=== PATIENT | male | born 1955 | race Caucasian/White ===

== ENCOUNTER 2023-05-11 06:23 | Day surgery (SDC) | payer MEDICARE, OTHER, SELFPAY ==
[2023-05-11] VITALS (10 sets, daily range): BP systolic 110–162; BP diastolic 62–94; BMI 31.3
--- NOTE | 2023-05-11 10:39 | W.SUR.PREOP ---
Pre-Operative Surgical Note
-
I have examined this patient prior to the performance of the scheduled procedure.
The patient's condition is unchanged from the time of the current History and
Physical and the patient is able to undergo the scheduled procedure.
[2023-05-11] MEDS: NORMOSOL-R 1000 IV (10:43)
[2023-05-11] MEDS: TYLENOL 1000 MG PO (10:43)
--- NOTE | 2023-05-11 13:52 | W.IMMPOSTOP ---
Surgical Immed Post Op Note
-
Primary Surgeon: Jose De Jesus
Assisting Surgeon: Marivel WILSON
Pre-op Diagnosis: Ventral hernia
Right inguinal hernia
Post-op Diagnosis: Incarcerated Ventral Hernia 3.5cm
Right inguinal hernia - direct
Procedure Performed: RAL repair incarcerated VH with mesh (IPOM +, ventralightST 11.4cm round)
RAL partial omentectomy
RAL MERY RIH repair with mesh; 3d Max, ex large mid weight mesh
Anesthesia Type: GETA + 0.25% Marcaine
Specimen / Cultures: none
Estimated Blood Loss: 16mL
Complications: none immediate
Operative Findings: Ventral hernia containing large portion of chronically incarcerated omentum. Numerous openings in omentum where was thinned out at neck of ventral hernia from chronic incarceration. Partial omentectomy therefore completed to
alleviate any potential future risk of internal hernias. Central abdominal wall fat pad cleared around ventral hernia defect. IPOM + sutured fascial closure of ventral hernia defect which was 3.5 cm maximal length. Ventralight ST 11.4 cm round
mesh sutured to the posterior sheath/linea alba circumferentially with 2 separate interrupted 2-0 PDS strata fix spiral sutures. Infraumbilical fat pad reapproximated to Ventralight mesh with running continuous 2-0 Monocryl STRATAFIX.
Right direct inguinal hernia, contents reduced. MERY repair with 3D max extra-large mid weight mesh secured to Rory's with 2-0 Vicryl.
[2023-05-11] MEDS: ZOFRAN 4 MG IV (14:40)
[2023-05-11] MEDS: SUBLIMAZE 50 MCG IV (14:55)
== END 2023-05-11 17:50 | disposition home or self-care (01) ==
LOC: SDS 06:23
PROVIDERS: ATTENDING PHYSICIAN Surgery
DX: K43.6 Other and unspecified ventral hernia with obstruction, without gangrene (principal); K40.90 Unilateral inguinal hernia, without obstruction or gangrene, not specified as recurrent
CPT/HCPCS: 49594; 49507; C1781